=== PATIENT | female | born 1950 | race Caucasian/White ===

== ENCOUNTER 2019-03-08 12:28 | Outpatient (CLI) | payer MEDICARE ==
[~2019-03-08] VITALS: Ht 165.1 cm; Wt 93.0 kg
[~2019-03-08 12:28] MED LIST: NO HOME MEDS
[2019-03-08] MEDS ORDERED: albuterol 2.5 MG/3 ML nebule NEB ONE (12:50)
== END 2019-03-08 23:59 | disposition home or self-care (01) ==
LOC: RT 12:28
PROVIDERS: ATTEND Nurse Practitioner
DX: J98.4 Other disorders of lung (principal); R05 Cough; Z87.891 Personal history of nicotine dependence
CPT/HCPCS: 94060; 94760